=== PATIENT | male | born 1940 | race Caucasian/White ===

== ENCOUNTER 2020-12-15 05:50 | Day surgery (SDC) | payer MEDICARE ==
[~2020-12-15] VITALS: Ht 172.7 cm; Wt 80.0 kg
[2020-12-15 06:30] VITALS: BP 152/80
[2020-12-15 06:33] VITALS: BP 152/80
[2020-12-15] MEDS ORDERED: FLUT9.9S NAS (06:59)
[2020-12-15] MEDS ORDERED: ASPI81TA59 PO (06:59)
[2020-12-15] MEDS ORDERED: LACTATED RINGERS 1,000 ML IV SCH (07:00)
[2020-12-15] MEDS ORDERED: CHLORHEXIDINE 15 ML UDC MM ONE (07:00)
[2020-12-15] MEDS ORDERED: PROPOFOL 50 ML ONE (07:16)
[2020-12-15] MEDS ORDERED: hydrALAzine 20 MG/ML, 1ML IV PRN (07:30)
[2020-12-15] MEDS ORDERED: PROMETHAZINE 25 MG/ML, 1ML IVPush PRN (07:30)
[2020-12-15] MEDS ORDERED: LABETALOL 5MG/ML, 20ML IV PRN (07:30)
[2020-12-15] MEDS ORDERED: ONDANSETRON 2MG/ML, 2ML IVPush PRN (07:30)
[2020-12-15] MEDS ORDERED: ACETAMINOPHEN 325 MG TABLET PO PRN (07:30)
[2020-12-15] MEDS ORDERED: FENTANYL PF 100 MCG/2ML IV PRN (07:30)
[2020-12-15] MEDS ORDERED: OXYcodone 5 MG/5 ML ORAL.SOL UDC PO PRN (07:30)
[2020-12-15] MEDS ORDERED: HYDROmorphone 1 MG/ML, 1ML INJ IVPush PRN (07:30)
[2020-12-15] MEDS ORDERED: PROPOFOL 10 MG/ML, 20ML ONE (08:30)
== END 2020-12-15 10:05 | disposition home or self-care (01) ==
LOC: OUT 05:50
PROVIDERS: ATTEND Internal Medicine Geriatric Medicine
DX: D12.0 Benign neoplasm of cecum (principal); D12.2 Benign neoplasm of ascending colon; D12.4 Benign neoplasm of descending colon; D12.3 Benign neoplasm of transverse colon; K62.1 Rectal polyp; K57.30 Diverticulosis of large intestine without perforation or abscess without bleeding; K64.0 First degree hemorrhoids; Z20.822 Contact with and (suspected) exposure to COVID-19; Z79.82 Long term (current) use of aspirin; Z79.899 Other long term (current) drug therapy; Z86.010 Personal history of colon polyps; Z88.8 Allergy status to other drugs, medicaments and biological substances
CPT/HCPCS: 45380; 45381; 45385; 88305; 93005; A4648; J2704; J7120; U0003